=== PATIENT | male | born 1955 | race Hispanic/Latino ===

== ENCOUNTER 2017-03-14 14:49 | Emergency (ER) | payer BC ==
[2017-03-14] MEDS ORDERED: MORPHINE SULFATE 8 MG/ML VIAL ONE (15:18)
[2017-03-14] MEDS ORDERED: ONDANSETRON ODT 4 MG TAB ONE (15:18)
== END 2017-03-14 18:32 | disposition home or self-care (01) ==
LOC: EDH 14:49
DX: S10.93XA Contusion of unspecified part of neck, initial encounter (principal); S80.01XA Contusion of right knee, initial encounter; E11.9 Type 2 diabetes mellitus without complications; I10 Essential (primary) hypertension; E78.5 Hyperlipidemia, unspecified; Z72.0 Tobacco use; V59.59XA Passenger in pick-up truck or van injured in collision with other motor vehicles in traffic accident, initial encounter; Y93.89 Activity, other specified; Y92.89 Other specified places as the place of occurrence of the external cause; Y99.8 Other external cause status
CPT/HCPCS: 70450; 71045; 72125; 72170; 73562; 96372; 99284; J2270

== ENCOUNTER 2022-05-30 22:44 | Emergency (ER) | payer OTHER, MEDICARE ==
[~2022-05-30] VITALS: Ht 167.6 cm; Wt 90.3 kg
[2022-05-30 23:30] LABS: BASOPHILS % (AUTO) 1.3 % (0.0-5.0); EOSINOPHILS % (AUTO) 2.4 % (0.0-8.0); HEMATOCRIT 46.5 % (42-54); LYMPHOCYTES % (AUTO) 15.2 % (21.0-51.0); MEAN CORPUSCULAR HGB CONC 34.6 g/dL (32.0-36.0); MEAN CORPUSCULAR VOLUME 83.8 fL (79-99); MONOCYTES % (AUTO) 5.8 % (3.0-13.0); NEUTROPHILS % (AUTO) 74.9 % (40.0-77.0); PLATELET COUNT (AUTO) 202 K/uL (130-400); RED BLOOD CELL COUNT(AUTO) 5.55 MIL/uL (4.50-6.20); WHITE BLOOD COUNT (AUTO) 9.4 K/uL (4.8-10.8)
[2022-05-30 23:42] LABS: CREATININE 1.4 mg/dL (0.5-1.5); POTASSIUM 4.1 mmol/L (3.5-5.1)
[2022-05-30 23:47] LABS: ALBUMIN 4.7 g/dL (3.5-5.0); TOTAL PROTEIN, SERUM 8.3 g/dL (6.0-8.3)
[2022-05-31 00:05] LABS: APPEARANCE,URINE CLEAR (CLEAR); BILIRUBIN,URINE NEGATIVE (NEGATIVE); COLOR,URINE COLORLESS (YELLOW); GLUCOSE, URINE (UA) >=1000 mg/dL (NEGATIVE); KETONES,URINE NEGATIVE (NEGATIVE); LEUKOCYTE ESTERASE ,URINE NEGATIVE Leu/uL (NEGATIVE); NITRATE,URINE NEGATIVE (NEGATIVE); OCCULT BLOOD,URINE NEGATIVE (NEGATIVE); PROTEIN,URINE 10 mg/dL (NEGATIVE); UROBILINOGEN,URINE 0.2 mg/dL (0.2-1.0)
[2022-05-31 00:11] LABS: WBC,URINE 0-1 /HPF (0-1)
[2022-05-31] MEDS ORDERED: MAG/ALUM/SIMETH 30 ML UDCUP PO ONE (00:30)
[2022-05-31] MEDS ORDERED: LIDOCAINE HCL 2% VISCOUS 15 ML UDCUP PO ONE (00:30)
[2022-05-31] MEDS ORDERED: ONDANSETRON ODT 4MG TAB SL ONE (00:30)
[2022-05-31] MEDS ORDERED: DICYCLOMINE HCL 10 MG/5 ML ML PO ONE (00:30)
[2022-05-31] MEDS ORDERED: DICY10 PO (00:39)
[2022-05-31] MEDS ORDERED: ONDA4TAB10 PO (00:39)
[2022-05-31 00:48] VITALS: BP 157/76
== END 2022-05-31 01:02 | disposition home or self-care (01) ==
LOC: EDH 22:44
DX: K52.9 Noninfective gastroenteritis and colitis, unspecified (principal); R10.9 Unspecified abdominal pain; E11.9 Type 2 diabetes mellitus without complications; I10 Essential (primary) hypertension; E78.00 Pure hypercholesterolemia, unspecified; Z98.890 Other specified postprocedural states
CPT/HCPCS: 36415; 80053; 81001; 83690; 85025

== ENCOUNTER → 2022-08-03 | Outpatient (CLI) | payer OTHER, MEDICARE ==
[~2022-08-03] MED LIST: DICY10 PO; ONDA4TAB10 PO
== END | disposition home or self-care (01) ==
LOC: SHCH 13:00
PROVIDERS: ATTEND Internal Medicine Cardiovascular Disease
DX: I87.2 Venous insufficiency (chronic) (peripheral) (principal); I87.1 Compression of vein
CPT/HCPCS: 93970

== ENCOUNTER → 2022-10-16 | Outpatient (CLI) | payer OTHER, MEDICARE ==
[2022-10-16 12:01] LABS: BASOPHILS # (AUTO) 0.13 K/uL (0.00-0.20); BASOPHILS % (AUTO) 1.9 % (0.0-5.0); EOSINOPHILS % (AUTO) 4.4 % (0.0-8.0); HEMATOCRIT 47.1 % (42-54); IMMATURE GRANULOCYTE ABSOLUTE 0.04 K/uL (0-1); LYMPHOCYTES # (AUTO) 1.6 K/uL (1.0-4.8); LYMPHOCYTES % (AUTO) 23.9 % (21.0-51.0); MEAN CORPUSCULAR HEMOGLOBIN 29.6 pg (27.0-33.0); MEAN CORPUSCULAR HGB CONC 33.8 g/dL (32.0-36.0); MEAN CORPUSCULAR VOLUME 87.7 fL (79-99); MONOCYTES # (AUTO) 0.6 K/uL (0.1-1.0); MONOCYTES % (AUTO) 9.4 % (3.0-13.0); NEUTROPHILS # (AUTO) 4.1 K/uL (1.8-7.7); NEUTROPHILS % (AUTO) 59.8 % (40.0-77.0); PLATELET COUNT (AUTO) 195 K/uL (130-400); RED BLOOD CELL COUNT(AUTO) 5.37 MIL/uL (4.50-6.20); WHITE BLOOD COUNT (AUTO) 6.8 K/uL (4.8-10.8)
[2022-10-16 12:03] LABS: CREATININE 1.2 mg/dL (0.5-1.5); POTASSIUM 4.5 mmol/L (3.5-5.1)
[2022-10-16 12:05] LABS: INR < 0.93 (0.85-1.15); PROTHROMBIN TIME 10.7 SEC (9.6-11.6)
[2022-10-16 12:06] LABS: PARTIAL THROMBOPLASTIN TIME 25.8 SEC (26.3-35.5)
== END | disposition home or self-care (01) ==
LOC: LAB 08:19
PROVIDERS: ATTEND Internal Medicine Cardiovascular Disease
DX: I87.2 Venous insufficiency (chronic) (peripheral) (principal); I87.1 Compression of vein; I10 Essential (primary) hypertension; E78.5 Hyperlipidemia, unspecified; E11.59 Type 2 diabetes mellitus with other circulatory complications; R60.0 Localized edema; M79.89 Other specified soft tissue disorders; E66.9 Obesity, unspecified; Z68.31 Body mass index [BMI] 31.0-31.9, adult; Z79.899 Other long term (current) drug therapy; Z79.84 Long term (current) use of oral hypoglycemic drugs
CPT/HCPCS: 36415; 80048; 85025; 85610; 85730

== ENCOUNTER 2023-01-22 02:41 | Emergency (ER) | payer OTHER, MEDICARE ==
[~2023-01-22] VITALS: Ht 167.6 cm; Wt 87.1 kg
[2023-01-22 02:43] VITALS: BP 104/94; PULSE 82; RESP 20
== END 2023-01-22 07:56 | disposition left against medical advice (07) ==
LOC: EDH 02:45
DX: R10.9 Unspecified abdominal pain (principal); R11.0 Nausea; Z53.21 Procedure and treatment not carried out due to patient leaving prior to being seen by health care provider